=== PATIENT | female | born 1965 | race Caucasian/White ===

== ENCOUNTER 2016-10-27 08:51 | Emergency (ER) | payer OTHER ==
--- NOTE | 2016-10-27 09:19 | ER Document Report ---
ED GI/ - General Chief Complaint: Abdominal Pain Stated Complaint: ABDOMINAL PAIN/VOMITING Time Seen by Provider: 10/27/16 09:13 Mode of Arrival: Ambulatory Information source: Patient Notes: 51 yo non smoker , non dm, htn, non etoh, non drugs, female kennedy, c/o constant dull, burning RLQ pain for 1 week, at 0200 woke up to acid reflux, vomiting, fever. Cough started last night. Can't hold water down. Last BM yesterday, hard balls. Hx Ovairan Cyst, Viola & Gastric bypass 15 years ago. Oneal 2 years ago, almost reversed it. Still has appendix. No dysuria. Menopause 2 years ago. Feels like she is swollen everywhere. Pain is 5/5. TRAVEL OUTSIDE OF THE [place] IN LAST 30 DAYS: No - Related Data Allergies/Adverse Reactions: codeine [Codeine] Allergy (Verified 10/27/16 08:57) hydromorphone HCl [From Dilaudid] Allergy (Verified 10/27/16 08:57) Past Medical History - General Information source: Patient - Social History Smoking Status: Never Smoker Chew tobacco use (# tins/day): No Frequency of alcohol use: None Drug Abuse: None Lives with: Spouse/Significant other Family History: CAD - brother " maker" 56 or so, mom stents, dad valves., DM, Hypertension - Past Medical History Cardiac Medical History: Reports: Hx Hypertension Renal/ Medical History: Reports: Hx Kidney Stones. Denies: Hx Peritoneal Dialysis Musculoskeltal Medical History: Reports Hx Arthritis Past Surgical History: Reports: Hx Abdominal Surgery - gastric bypass, Hx Cholecystectomy, Hx Gastric Bypass Surgery - Immunizations Hx Diphtheria, Pertussis, Tetanus Vaccination: Yes Review of Systems - Review of Systems Constitutional: See HPI EENT: No symptoms reported Cardiovascular: No symptoms reported Respiratory: No symptoms reported Gastrointestinal: See HPI Genitourinary: No symptoms reported Female Genitourinary: No symptoms reported Musculoskeletal: No symptoms reported Skin: No symptoms reported Hematologic/Lymphatic: No symptoms reported Neurological/Psychological: No symptoms reported Physical Exam - Vital signs Vitals: Temp Pulse Resp BP Pulse Ox 100.3 F 129 H 14 127/83 H 94 10/27/16 08:56 10/27/16 08:56 10/27/16 08:56 10/27/16 08:56 10/27/16 08:56 Interpretation: Normal - General General appearance: Appears well, Alert In distress: None - HEENT Head: Normocephalic, Atraumatic Eyes: Normal Conjunctiva: Normal Pupils: PERRL Tympanic membrane: Normal Mouth/Lips: Normal Mucous membranes: Normal Pharynx: Normal Neck: Supple. No: Lymphadenopathy - Respiratory Respiratory status: No respiratory distress Chest status: Nontender Breath sounds: Normal Chest palpation: Normal - Cardiovascular Rhythm: Regular Heart sounds: Normal auscultation Murmur: No - Abdominal Inspection: Normal Distension: No distension Bowel sounds: Normal Tenderness: Tender - right pelvic Organomegaly: No organomegaly - Back Back: Normal, Nontender. No: CVA tenderness - Extremities General upper extremity: Normal inspection, Nontender, Normal color, Normal ROM , Normal temperature General lower extremity: Normal inspection, Nontender, Normal color, Normal ROM , Normal temperature, Normal weight bearing. No: Jalyn's sign - Neurological Neuro grossly intact: Yes Cognition: Normal Orientation: AAOx4 [place] Coma Scale Eye Opening: Spontaneous [place] Coma Scale Verbal: Oriented [place] Coma Scale Motor: Obeys Commands Julian Coma Scale Total: 15 Speech: Normal Motor strength normal: LUE, RUE, LLE, RLE Sensory: Normal - Psychological Associated symptoms: Normal affect, Normal mood - Skin Skin Temperature: Warm Skin Moisture: Dry Skin Color: Normal Skin irregularity: negative: Rash Course - Re-evaluation Re-evalutation: 10/27/16 12:27 pt drinking her contrast. US did not show ovaries, small fibroids 10/27/16 14:05 ct shows right middle lobe pneumonia, called Dr sandoval about the biliary air. Pt previous viola but unknown if sphincterotomy, Called dr. hunt who states that it is penumonia and the air is not biliary tree, but antrum of stomach, will add addendum. Hepatic cyst, will refer to her choir teacher 10/27/16 14:11 - Vital Signs Vital signs: Temp Pulse Resp BP Pulse Ox 98.2 F 98 16 126/86 H 97 10/27/16 14:51 10/27/16 14:51 10/27/16 14:51 10/27/16 14:51 10/27/16 14:51 - Laboratory Result Diagrams: 10/27/16 09:24 10/27/16 09:24 Laboratory results interpreted by me: 10/27/16 10/27/16 10/27/16 09:24 09:24 10:19 WBC 14.2 H Seg Neuts % (Manual) 85 H Band Neutrophils % 7 H Lymphocytes % (Manual) 6 L Monocytes % (Manual) 2 L Abs Neuts (Manual) 13.1 H Potassium 3.3 L Creatinine 0.51 L Glucose 131 H Urine Protein 30 H Urine Glucose (UA) 50 H Urine Ketones TRACE H Ur Leukocyte Esterase TRACE H Discharge - Discharge Clinical Impression: Right lower quadrant abdominal pain, Hypokalemia, Hepatic cyst Right middle lobe pneumonia Qualifiers: Pneumonia type: due to unspecified organism Qualified Code(s): J18.1 - Lobar pneumonia, unspecified organism Condition: Good Disposition: HOME, SELF-CARE Instructions: Abdominal Pain ([facility]), Oral Narcotic Medication ([facility]), Pneumonia ( [facility]), Levofloxacin, Potassium ([facility]), Hypokalemia ([facility]) Additional Instructions: plenty of fluids rest eat bannana per day cough and deep breath to er any shortness of breath, fever, chest pain see your doctor for follow up about the liver cyst Please complete the patient satisfaction survey if you get one, and return it.. If you do not receive a survey, then you can go to the [facility] website, [email or web address] and place your comments about your very good care. Thank you very much. It was a pleasure being your medical provider today. Prescriptions: Hydrocodone Bit/Acetaminophen [Hydrocodon-Acetaminophen 5-325] 1 each PO Q4HP PRN #15 tablet PRN Reason: Promethazine HCl [Phenergan 25 mg Tablet] 25 mg PO Q4HP PRN #20 tablet PRN Reason: Levofloxacin [Levaquin] 750 mg PO DAILY #4 tablet Forms: Return to Work
[2016-10-27 09:36] LABS: HEMATOCRIT 43.6 % (36.0-47.0); HEMOGLOBIN 15.2 g/dL (12.0-15.5); MEAN CORPUSCULAR VOLUME 89 fl (80-97); RED BLOOD COUNT 4.92 10^6/uL (3.72-5.28); WHITE BLOOD COUNT 14.2 10^3/uL (4.0-10.5)
[2016-10-27] MEDS ORDERED: ONDANSETRON 4 MG TAB.RAPDIS PO ONE (09:38)
[2016-10-27] MEDS ORDERED: NORMAL SALINE 1000 ML 1,000 ML IV ONE (09:38)
[2016-10-27] MEDS ORDERED: MORPHINE SULFATE 10 MG/ML INJ IV ONE (09:39)
[2016-10-27 09:51] LABS: BAND NEUTROPHILS % (MANUAL) 7 % (3-5); BASOPHILS % (MANUAL) 0 % (0-2); EOSINOPHILS % (MANUAL) 0 % (0-6); HYPOCHROMASIA SLIGHT; LYMPHOCYTES % (MANUAL) 6 % (13-45); TOTAL CELLS COUNTED 100; TOXIC GRANULATION 1+; TOXIC VACUOLATION PRESENT
[2016-10-27 09:55] LABS: ALANINE AMINOTRANSFERASE 19 U/L (9-52); ALBUMIN 4.2 g/dL (3.5-5.0); ALKALINE PHOSPHATASE 120 U/L (38-126); ANION GAP 12 (5-19); ASPARTATE AMINO TRANSFERASE 20 U/L (14-36); BILIRUBIN,DIRECT 0.2 mg/dL (0.0-0.4); BILIRUBIN,TOTAL 0.5 mg/dL (0.2-1.3); BLOOD UREA NITROGEN 19 mg/dL (7-20); CALCIUM 9.1 mg/dL (8.4-10.2); CARBON DIOXIDE 25 mmol/L (22-30); CHLORIDE 102 mmol/L (98-107); CREATININE RESULT 0.51 mg/dL (0.52-1.25); GLUCOSE 131 mg/dL (75-110); LIPASE 80.4 U/L (23-300); POTASSIUM 3.3 mmol/L (3.6-5.0); SODIUM 139.3 mmol/L (137-145); TOTAL PROTEIN 7.6 g/dL (6.3-8.2)
[2016-10-27 10:45] LABS: APPEARANCE,URINE SLIGHTLY-CLOUDY; BILIRUBIN,URINE NEGATIVE (NEGATIVE); GLUCOSE, URINE 50 mg/dL (NEGATIVE); KETONES,URINE TRACE mg/dL (NEGATIVE); LEUKOCYTE ESTERASE,URINE TRACE (NEGATIVE); NITRITE,URINE NEGATIVE (NEGATIVE); PROTEIN,URINE 30 mg/dL (NEGATIVE); URINE SPECIFIC GRAVITY 1.029; UROBILINOGEN,URINE NEGATIVE mg/dL (<2.0)
--- NOTE | 2016-10-27 11:20 | RADIOLOGY REPORT (SQ) ---
EXAM DESCRIPTION: U/S NON OB PEL TV W/DOPPLER COMPLETED DATE/TIME: 10/27/2016 11:06 am REASON FOR STUDY: r/o cyst, torsion, rlq pain COMPARISON: None. TECHNIQUE: Dynamic and static grayscale images acquired of the pelvis via transabdominal and transva ginal approach and recorded on PACS. Additional selected color Doppler and spectral images recorded. LIMITATIONS: None. FINDINGS: UTERUS: The myometrium is heterogeneous. To hypoechoic densities are present. The larger measures 18 mm. ENDOMETRIAL STRIPE: No focal or generalized thickening. No masses. CERVIX: Nabothian cysts are present. RIGHT OVARY: Not seen. RIGHT OVARY DOPPLER: Ovary not seen. LEFT OVARY: Not seen. LEFT OVARY DOPPLER: Ovary not seen. FREE FLUID: None noted. OTHER: No other significant finding. MEASUREMENTS: UTERUS: 78 x 50 x 43 mm. ENDOMETRIAL STRIPE: 7 mm. RIGHT OVARY: Not seen. LEFT OVARY: Not seen. IMPRESSION: A couple small uterine fibroids are present. Nabothian cysts are seen. The ovaries wer e not able to be seen. TECHNICAL DOCUMENTATION: JOB ID: [id number]- All Rights Reserved
[2016-10-27] MEDS ORDERED: ERTAPENEM SODIUM INJ 1 GM VIAL IV ONE (12:19)
--- NOTE | 2016-10-27 13:32 | RADIOLOGY REPORT (SQ) ---
EXAM DESCRIPTION: CT ABD/PELVIS WITH IV ORAL COMPLETED DATE/TIME: 10/27/2016 12:53 pm REASON FOR STUDY: RLQ pain COMPARISON: None. TECHNIQUE: CT scan of the abdomen and pelvis performed using helical scanning technique with dynamic intravenous contrast injection. No oral contrast. Images reviewed with lung, soft tissue, and bone windows. Reconstructed coronal and sagittal MPR images reviewed. Delayed images for evaluation of the urinary system also acquired. All images stored on PACS. All CT scanners at this facility use dose modulation, iterative reconstruction, and/or weight based d osing when appropriate to reduce radiation dose to as low as reasonably achievable (ALARA). [facility]: Dose Right [facility]: CareDose [facility]: Dose Right [facility]: Teradose 4D [facility]: [employer] CONTRAST TYPE AND DOSE: contrast/concentration: Isovue 370.00 mg/ml; Total Contrast Delivered: 74.0 ml; Total Saline Delivered: 65.9 ml RENAL FUNCTION: Creatinine 0.5 BUN 19 RADIATION DOSE: Up-to-date CT equipment and radiation dose reduction techniques were employed. CTDIv ol: 9.7 - 12.7 mGy. DLP: 1081 mGy-cm.. LIMITATIONS: None. FINDINGS: LOWER CHEST: There is consolidation in the right middle lobe. Air bronchograms are seen. LIVER: There is a minimal amount of biliary air. A cyst is present in the right lobe. SPLEEN: Normal size. No focal lesions. PANCREAS: No masses. No significant calcifications. No adjacent inflammation or peripancreatic fluid collections. Pancreatic duct not dilated. GALLBLADDER: Surgically absent. ADRENAL GLANDS: No significant masses or asymmetry. RIGHT KIDNEY AND URETER: No solid masses. No significant calcifications. No hydronephrosis or hyd roureter. LEFT KIDNEY AND URETER: No solid masses. No significant calcifications. No hydronephrosis or hydr oureter. AORTA AND VESSELS: No aneurysm. No dissection. Renal arteries, SMA, celiac without stenosis. RETROPERITONEUM: No retroperitoneal adenopathy, hemorrhage or masses. BOWEL AND PERITONEAL CAVITY: No masses or inflammatory changes. No free fluid or peritoneal masses. APPENDIX: Normal. PELVIS: The urinary bladder is normal. The uterus is normal for age. There is no adnexal mass or fl uid collection. There is no free fluid. ABDOMINAL WALL: No masses. No hernias. BONES: No significant or acute findings. OTHER: No other significant finding. IMPRESSION: 1. Right middle lobe pneumonia versus atelectasis. 2. Right hepatic cyst. There is small amount of biliary air, suggesting the patient may have had a sphincterotomy in the past. 3. There are no findings to explain the patient's right lower quadrant pain. TECHNICAL DOCUMENTATION: JOB ID: [id number] Quality ID # [id number]: Final reports with documentation of one or more dose reduction techniques (e.g., Au tomated exposure control, adjustment of the mA and/or kV according to patient size, use of iterative reconstruction technique) 2010 [employer]- All Rights Reserved
[2016-10-27] MEDS ORDERED: ONDANSETRON HCL INJ/PF 4 MG/2 ML SDV IV ONE (13:44)
[2016-10-27] MEDS ORDERED: POTASSIUM CHLORIDE 20 MEQ/15 ML UDCUP PO ONE (13:50)
[2016-10-27] MEDS ORDERED: LEVOFLOXACIN 750 MG TABLET PO ONE (14:20)
[2016-10-27 14:52] VITALS: BP 126/86
--- NOTE | 2016-10-28 13:33 | ER Document Report ---
Doctor's Note Notes: 10/28/16 13:31 Pt Called today stating that she had broken out in a rash and was vomiting after taking Levaquin, and is requesting a different prescription be sent to the pharmacy. Doxycycline will be sent to [facility] in [place].
== END 2016-10-27 14:53 | disposition home or self-care (01) ==
LOC: ER 08:51
DX: D25.9 Leiomyoma of uterus, unspecified (principal); R10.31 Right lower quadrant pain; J18.1 Lobar pneumonia, unspecified organism; K76.89 Other specified diseases of liver; E87.6 Hypokalemia; K21.9 Gastro-esophageal reflux disease without esophagitis; R11.10 Vomiting, unspecified; R50.9 Fever, unspecified; R05 Cough; I10 Essential (primary) hypertension; Z98.84 Bariatric surgery status; Z82.49 Family history of ischemic heart disease and other diseases of the circulatory system; Z88.5 Allergy status to narcotic agent; Z87.442 Personal history of urinary calculi; Z90.49 Acquired absence of other specified parts of digestive tract
CPT/HCPCS: 99284; 96375; 96365; 36415; 87086; 83690; 85025; 80053; 81001; 76830; 93976; 74177; S0119; J1335; J2270; J2405; J7030